=== PATIENT | male | born 1985 | race Caucasian/White ===

== ENCOUNTER 2022-08-31 22:36 | Emergency (ER) | payer MEDICAID ==
[~2022-08-31] VITALS: Ht 177.8 cm; Wt 91.9 kg
[2022-08-31 22:43] VITALS: BP 122/78
--- NOTE | 2022-08-31 22:45 | NUR ---
pt to lobby
--- NOTE | 2022-09-01 02:24 | NUR ---
pt to bed 03
--- NOTE | 2022-09-01 02:46 | NUR ---
Patient resting in bed, A/Ox4, chest rise and fall symmetrical, no s/s of distress, on monitor.
[2022-09-01] MEDS ORDERED: OMEP20EC11 PO (03:28)
[2022-09-01] MEDS ORDERED: MAG-27 PO (03:28)
[2022-09-01] MEDS: DICYCLOMINE HCL LIQUID 20 MG, ALUMINUM HYD/MAG/SIMETHICONE 30 ML, LIDOCAINE VISCOUS 2% ... PO ONE ×3 (03:32)
[2022-09-01 03:33] VITALS: BP 122/84
--- NOTE | 2022-09-01 03:34 | NUR ---
Patient discharged with v/s stable. Verbal instructions given and explained, but patient left without paperwork. Patient alert, oriented and verbalized understanding of instructions. Ambulatory with steady gait. All questions addressed prior to discharge. ID band removed. Patient advised to follow up with PMD. Patient educated on indication of medication including possible reaction and side effects. Opportunity to ask questions provided and answered.
== END 2022-09-01 03:34 | disposition home or self-care (01) ==
LOC: MED 22:36
DX: K21.9 Gastro-esophageal reflux disease without esophagitis (principal); Z79.899 Other long term (current) drug therapy
CPT/HCPCS: 99282